=== PATIENT | female | born 1935 | race Caucasian/White ===

== ENCOUNTER 2020-06-11 17:39 | Inpatient (IN) | payer MEDICARE, OTHER ==
[~2020-06-11 17:39] MED LIST: ACID CONTROL150 MG PO; ALLEGRA ALLERG180 MG PO; AMIODARONE HCL200 MG PO; ANORO ELLIPTA1 EACH INH; AZITHROMYCIN250 MG PO; BACLOFEN 20MG T20 MG PO; BENADRYL25 M1 PO; CENTRUM VITAM200 MCG PO; CLARITIN10 MG PO; COMPRESSION TH1 EACH XX; COREG 3.125M3.125 MG PO; COREG 6.25MG6.25 MG PO; COZAAR 100MG T100 MG PO; COZAAR100 MG PO; CRESTOR20 MG PO; DIAZEPAM 5MG TAB5 MG PO; DURAGESIC 75MC75 MCG TD; ELIQUIS5 M1 PO; ELIQUIS5 MG PO; FLOVENT HF120 PUFFS/ INH; FUROSEMIDE 40MG40 MG PO; IMDUR 30MG TABL30 MG PO; KETOROLAC TROME10 MG IM; LASIX40 MG PO; LEVOCETIRIZINE D5 MG PO; MIRALAX17 GM PO; MUCINEX 600MG600 MG PO; NITROQUIK SL0.4 MG SL; NORVASC5 MG PO; OS-CAL 500+D31 EACH PO; PLAVIX75 MG PO; PRINIVIL20 MG PO; PROBIOTIC & AC1 EACH PO; RANITIDINE HCL150 M1 PO; SYNTHROID50 MCG PO; ULTRAM50 MG PO; VENTOLIN HFA IN18 GM INH; VITAMIN B-121000 MC1 PO; VITAMIN D31000 UNIT PO; ZYRTEC10 MG PO
[2020-06-11] MEDS ORDERED: SYNTHROID50 MCG PO (18:00)
[2020-06-11] MEDS ORDERED: LEVOTHYROXINE50 MC1 PO (18:01)
[2020-06-11] MEDS ORDERED: CILOSTAZOL100 MG PO (18:01)
[2020-06-11] MEDS ORDERED: TRAMADOL HCL50 MG PO (18:02)
[2020-06-11] MEDS ORDERED: TYLENOL ARTHRI650 MG PO (18:03)
[2020-06-11] MEDS ORDERED: CRESTOR20 MG PO (18:05)
[2020-06-11] MEDS ORDERED: LASIX40 MG PO (18:05)
[2020-06-11] MEDS ORDERED: ELIQUIS2.5 MG PO (18:06)
[2020-06-11] MEDS ORDERED: COREG 3.125M3.125 MG PO (18:06)
[2020-06-11] MEDS ORDERED: COZAAR100 MG PO (18:09)
[2020-06-11 19:29] LABS: INFLUENZA A NAA NEGATIVE (NEGATIVE)
[2020-06-11 19:30] LABS: CORONAVIRUS 2019 SARS-COV-2 POSITIVE (NEGATIVE)
[2020-06-12 05:35] LABS: HCT 32.5 % (37.0-47.0); HGB 10.2 g/dl (12.5-16.0); MCH 32.1 pg (25.0-31.0); MCHC 31.4 g/dL (32.0-36.0); MCV 102.2 fL (78.0-100.0); MPV 10.1 fL (6.0-9.5); RBC 3.18 M/uL (4.20-5.40); RDW 14.7 % (11.5-14.0); WBC 3.6 K/uL (4.0-10.5)
[2020-06-12 05:54] LABS: BUN/CREAT RATIO (CALC) 25.3 RATIO; CREATININE 0.79 mg/dL (0.51-0.95); POTASSIUM 3.6 mmol/L (3.5-5.1)
--- NOTE | 2020-06-12 12:51 | NUR ---
06/12/20 Ms. Clark lives alone. She has home 02, rw, cane, and s. chair. She reports to be able to prepare her own meals. A lock stitch channeler cleans once a month. A referral was made to [facility] per patient choice. Please notify [facility] at [phone] if patient is discharged over the weekend.
[2020-06-13 05:52] LABS: HCT 33.7 % (37.0-47.0); HGB 10.6 g/dl (12.5-16.0); MCH 32.1 pg (25.0-31.0); MCHC 31.5 g/dL (32.0-36.0); MCV 102.1 fL (78.0-100.0); MPV 10.1 fL (6.0-9.5); RBC 3.3 M/uL (4.20-5.40); RDW 14.4 % (11.5-14.0); WBC 2.5 K/uL (4.0-10.5)
[2020-06-13 06:06] LABS: BUN/CREAT RATIO (CALC) 30.1 RATIO; CREATININE 0.93 mg/dL (0.51-0.95); POTASSIUM 3.7 mmol/L (3.5-5.1)
[2020-06-14 04:57] LABS: HCT 32.9 % (37.0-47.0); HGB 10.6 g/dl (12.5-16.0); MCH 32.3 pg (25.0-31.0); MCHC 32.2 g/dL (32.0-36.0); MCV 100.3 fL (78.0-100.0); MPV 10.2 fL (6.0-9.5); RBC 3.28 M/uL (4.20-5.40)
[2020-06-14 05:01] LABS: WBC 4.4 K/uL (4.0-10.5)
[2020-06-14 05:11] LABS: BUN/CREAT RATIO (CALC) 35.4 RATIO; CREATININE 0.82 mg/dL (0.51-0.95); POTASSIUM 3.4 mmol/L (3.5-5.1)
--- NOTE | 2020-06-14 09:18 | NUR ---
Per Dr. Bridges, patient to be discharged today. Notified [facility] of Discharge.
[2020-06-14] MEDS ORDERED: DECADRON6 MG PO (09:22)
== END 2020-06-14 11:22 | disposition home health service (06) | DRG 177 ==
LOC: FTCU 17:39
PROVIDERS: ADMIT Hospitalist
PROC: 8E0ZXY6 Isolation (ICD-10-PCS; principal; 2020-06-11)
PROC: XW033E5 Introduction of Remdesivir Anti-infective into Peripheral Vein, Percutaneous Approach, New Technology Group 5 (ICD-10-PCS; 2020-06-12)
DX: U07.1 COVID-19 (principal); J96.01 Acute respiratory failure with hypoxia; J12.82 Pneumonia due to coronavirus disease 2019; I50.23 Acute on chronic systolic (congestive) heart failure; I11.0 Hypertensive heart disease with heart failure; E03.9 Hypothyroidism, unspecified; E78.5 Hyperlipidemia, unspecified; G89.4 Chronic pain syndrome; J44.9 Chronic obstructive pulmonary disease, unspecified; M79.7 Fibromyalgia; G47.33 Obstructive sleep apnea (adult) (pediatric); K21.9 Gastro-esophageal reflux disease without esophagitis; E11.51 Type 2 diabetes mellitus with diabetic peripheral angiopathy without gangrene; F41.9 Anxiety disorder, unspecified; M34.9 Systemic sclerosis, unspecified; I73.00 Raynaud's syndrome without gangrene; Z79.01 Long term (current) use of anticoagulants; Z99.81 Dependence on supplemental oxygen; Z90.49 Acquired absence of other specified parts of digestive tract; Z98.51 Tubal ligation status; Z95.5 Presence of coronary angioplasty implant and graft; Z98.890 Other specified postprocedural states; Z88.2 Allergy status to sulfonamides; Z88.5 Allergy status to narcotic agent; Z88.1 Allergy status to other antibiotic agents; Z88.8 Allergy status to other drugs, medicaments and biological substances; Z88.6 Allergy status to analgesic agent
CPT/HCPCS: 36415; 36600; 71045; 71046; 80048; 82803; 83880; 84484; 94640; 97165; C9399; J1100; J1160; J1940; J2405; J7050; U0002

== ENCOUNTER 2021-07-17 20:13 | Emergency (ER) | payer MEDICARE, OTHER ==
[~2021-07-17 20:13] MED LIST changes: +CILOSTAZOL100 MG PO; +DECADRON6 MG PO; +ELIQUIS2.5 MG PO; +LEVOTHYROXINE50 MC1 PO; +TRAMADOL HCL50 MG PO; +TYLENOL ARTHRI650 MG PO
[2021-07-17 22:58] LABS: BASOPHIL 0.5 % (0-2); EOSINOPHIL 2.1 % (0-7); HCT 37.9 % (37.0-47.0); HGB 11.6 g/dl (12.5-16.0); LYMPHOCYTE 20.1 % (15-48); MCH 31.4 pg (25.0-31.0); MCHC 30.6 g/dL (32.0-36.0); MCV 102.4 fL (78.0-100.0); MONOCYTE 9.1 % (0-12); MPV 9.9 fL (6.0-9.5); NEUTROPHIL 67.9 % (41-80); NRBC 0; PLT 117 K/uL (150-400); RDW 16.1 % (11.5-14.0); WBC 6.6 K/uL (4.0-10.5)
[2021-07-17 23:15] LABS: ALBUMIN 3.3 g/dL (3.4-5.0); BILIRUBIN - TOTAL 0.7 mg/dL (0.2-1.0); BUN/CREAT RATIO (CALC) 27.6 RATIO; CREATININE 0.76 mg/dL (0.51-0.95); GLOBULIN (CALCULATION) 3.1 g/dL; POTASSIUM 3.9 mmol/L (3.5-5.1); TOTAL PROTEIN 6.4 g/dL (6.4-8.2)
[2021-07-18 01:00] LABS: BILIRUBIN NEGATIVE (NEGATIVE); BLOOD TRACE-INTACT Ery/uL (NEGATIVE); CLARITY CLEAR (CLEAR); COLOR YELLOW (YELLOW); GLUCOSE (U) NORMAL (NORMAL); LEUKOCYTES 1+ Leu/uL (NEGATIVE); NITRITE NEGATIVE (NEGATIVE); PROTEIN TRACE (LOW) mg/dL (NEGATIVE); UROBILINOGEN 0.2 mg/dL (0.2-1.0)
[2021-07-18 01:10] LABS: BACTERIA 1+; URINARY RBC RARE
[2021-07-18] MEDS ORDERED: MACROBID100 MG PO (02:09)
== END 2021-07-18 02:26 | disposition home or self-care (01) ==
LOC: FER 20:13
PROVIDERS: Emergency Medicine
DX: M25.511 Pain in right shoulder (principal); N39.0 Urinary tract infection, site not specified; J44.9 Chronic obstructive pulmonary disease, unspecified; Z99.81 Dependence on supplemental oxygen; Z88.1 Allergy status to other antibiotic agents; Z88.2 Allergy status to sulfonamides; Z88.5 Allergy status to narcotic agent; Z88.8 Allergy status to other drugs, medicaments and biological substances; W01.0XXA Fall on same level from slipping, tripping and stumbling without subsequent striking against object, initial encounter
CPT/HCPCS: 36415; 70450; 71250; 72125; 73030; 80053; 81001; 85025

== ENCOUNTER 2021-07-18 05:07 | Emergency (ER) | payer MEDICARE, OTHER ==
[~2021-07-18 05:07] MED LIST changes: +MACROBID100 MG PO
== END 2021-07-18 11:40 | disposition home or self-care (01) ==
LOC: FER 05:07
DX: M25.511 Pain in right shoulder (principal); I50.9 Heart failure, unspecified; J44.9 Chronic obstructive pulmonary disease, unspecified; E11.9 Type 2 diabetes mellitus without complications; Z99.81 Dependence on supplemental oxygen; Z88.1 Allergy status to other antibiotic agents; Z88.2 Allergy status to sulfonamides; Z88.5 Allergy status to narcotic agent; X58.XXXA Exposure to other specified factors, initial encounter; Y92.009 Unspecified place in unspecified non-institutional (private) residence as the place of occurrence of the external cause
CPT/HCPCS: 73030

== ENCOUNTER 2021-07-29 23:49 | Emergency (ER) | payer MEDICARE, OTHER | END 2021-07-30 02:55 | disposition home or self-care (01) | LOC: FER 23:49 | DX: M25.511 Pain in right shoulder (principal); I10 Essential (primary) hypertension; J44.9 Chronic obstructive pulmonary disease, unspecified; Z88.1 Allergy status to other antibiotic agents; Z88.2 Allergy status to sulfonamides; Z88.5 Allergy status to narcotic agent; Z88.7 Allergy status to serum and vaccine; W19.XXXA Unspecified fall, initial encounter; Y92.009 Unspecified place in unspecified non-institutional (private) residence as the place of occurrence of the external cause | CPT/HCPCS: 73030 ==

== ENCOUNTER 2021-08-13 14:40 | Emergency (ER) | payer MEDICARE, OTHER ==
[2021-08-13 15:41] LABS: BASOPHIL 0.5 % (0-2); EOSINOPHIL 3.6 % (0-7); HCT 34.2 % (37.0-47.0); HGB 10.1 g/dl (12.5-16.0); MCH 31.7 pg (25.0-31.0); MCHC 29.5 g/dL (32.0-36.0); MCV 107.2 fL (78.0-100.0); MONOCYTE 8.4 % (0-12); MPV 10.1 fL (6.0-9.5); NRBC 0; PLT 158 K/uL (150-400); RBC 3.19 M/uL (4.20-5.40); RDW 18.1 % (11.5-14.0); WBC 6.1 K/uL (4.0-10.5)
[2021-08-13 15:46] LABS: INR 1.29 (0.9-1.2); PROTHROMBIN TIME 15.4 SECONDS (11.8-13.4); PTT 40.4 SECONDS (24.4-34.7)
[2021-08-13 15:57] LABS: ALBUMIN 3.1 g/dL (3.4-5.0); BILIRUBIN - TOTAL 0.8 mg/dL (0.2-1.0); BUN/CREAT RATIO (CALC) 23.5 RATIO; CREATININE 0.81 mg/dL (0.51-0.95); GLOBULIN (CALCULATION) 3.3 g/dL; MAGNESIUM 2.1 mg/dL (1.8-2.4); TOTAL PROTEIN 6.4 g/dL (6.4-8.2)
[2021-08-13 16:41] LABS: LACTIC ACID 1.1 mmol/L (0.4-1.9)
[2021-08-13 16:50] LABS: BILIRUBIN NEGATIVE (NEGATIVE); BLOOD NEGATIVE Ery/uL (NEGATIVE); CLARITY CLEAR (CLEAR); COLOR YELLOW (YELLOW); GLUCOSE (U) NORMAL (NORMAL); LEUKOCYTES NEGATIVE Leu/uL (NEGATIVE); NITRITE NEGATIVE (NEGATIVE); PROTEIN NEGATIVE (NEGATIVE); UROBILINOGEN 0.2 mg/dL (0.2-1.0); pH 6.5 (5.0-9.0)
== END 2021-08-13 18:15 | disposition home or self-care (01) ==
LOC: FER 14:40
PROVIDERS: Emergency Medicine
DX: I11.0 Hypertensive heart disease with heart failure (principal); I50.9 Heart failure, unspecified; I48.91 Unspecified atrial fibrillation; I87.8 Other specified disorders of veins; E11.9 Type 2 diabetes mellitus without complications; F17.200 Nicotine dependence, unspecified, uncomplicated; Z99.81 Dependence on supplemental oxygen; Z79.01 Long term (current) use of anticoagulants; Z79.899 Other long term (current) drug therapy
CPT/HCPCS: 36415; 36600; 71045; 80053; 81003; 82803; 83605; 83735; 83880; 84145; 84484; 85025; 85610; 85730; 87040; 93005; J1940

== ENCOUNTER 2021-08-16 16:13 | Inpatient (IN) | payer MEDICARE, OTHER ==
[~2021-08-16] VITALS: Ht 152.4 cm; Wt 77.2 kg
--- NOTE | 2021-08-16 17:14 | NUR ---
DIRECT ADMIT FROM [facility] VIA STRETCHER. ORIENTED TO ROOM
[2021-08-16 17:52] LABS: EOSINOPHIL 4.4 % (0-7); HCT 31.8 % (37.0-47.0); HGB 9.5 g/dl (12.5-16.0); LYMPHOCYTE 20.5 % (15-48); MCH 31.8 pg (25.0-31.0); MCHC 29.9 g/dL (32.0-36.0); MCV 106.4 fL (78.0-100.0); MONOCYTE 10.6 % (0-12); MPV 9.2 fL (6.0-9.5); NEUTROPHIL 63.1 % (41-80); NRBC 0; PLT 154 K/uL (150-400); RBC 2.99 M/uL (4.20-5.40); RDW 17.6 % (11.5-14.0); WBC 4.8 K/uL (4.0-10.5)
[2021-08-16 18:15] LABS: INR 1.45 (0.9-1.2); PROTHROMBIN TIME 16.9 SECONDS (11.8-13.4)
[2021-08-16 18:16] LABS: PTT 43.9 SECONDS (24.4-34.7)
[2021-08-16] MEDS ORDERED: MACROBID100 MG PO (18:47)
[2021-08-16] MEDS ORDERED: DECADRON6 MG PO (18:48)
[2021-08-16] MEDS ORDERED: COZAAR 100MG T100 MG PO (18:49)
[2021-08-16] MEDS ORDERED: ELIQUIS2.5 MG PO (18:50)
[2021-08-16] MEDS ORDERED: COREG 3.125M3.125 MG PO (18:51)
[2021-08-16] MEDS ORDERED: CRESTOR20 MG PO (18:51)
[2021-08-16] MEDS ORDERED: LASIX40 MG PO (18:54)
[2021-08-16] MEDS ORDERED: 8 HOUR650 MG PO (18:55)
[2021-08-16] MEDS ORDERED: TRAMADOL HCL50 MG PO (18:55)
[2021-08-16 18:56] LABS: IRON % SATURATION 13.4 %SAT (20-50)
[2021-08-16] MEDS ORDERED: CILOSTAZOL100 MG PO (18:57)
[2021-08-16 19:05] LABS: ALBUMIN 2.8 g/dL (3.4-5.0); BILIRUBIN - TOTAL 0.7 mg/dL (0.2-1.0); BUN/CREAT RATIO (CALC) 23.2 RATIO; CREATININE 0.82 mg/dL (0.51-0.95); GLOBULIN (CALCULATION) 3.1 g/dL; POTASSIUM 3.7 mmol/L (3.5-5.1); TOTAL PROTEIN 5.9 g/dL (6.4-8.2)
[2021-08-16] MEDS ORDERED: SYNTHROID50 MCG PO ×2 (19:31→19:32)
[2021-08-16] MEDS ORDERED: DURAGESIC 75MC75 MCG TD (19:34)
[2021-08-16] MEDS ORDERED: ALLOPURINOL100 MG PO (19:36)
[2021-08-16] MEDS ORDERED: NITROSTAT0.4 MG SL (19:37)
[2021-08-17 05:46] LABS: BASOPHIL 0.8 % (0-2); EOSINOPHIL 4.8 % (0-7); HCT 31.6 % (37.0-47.0); HGB 9.3 g/dl (12.5-16.0); LYMPHOCYTE 27.2 % (15-48); MCH 31.3 pg (25.0-31.0); MCHC 29.4 g/dL (32.0-36.0); MCV 106.4 fL (78.0-100.0); MONOCYTE 8.4 % (0-12); MPV 10.1 fL (6.0-9.5); NEUTROPHIL 58.4 % (41-80); PLT 163 K/uL (150-400); RBC 2.97 M/uL (4.20-5.40); RDW 17.5 % (11.5-14.0); WBC 4.8 K/uL (4.0-10.5)
[2021-08-17 06:23] LABS: CREATININE 0.74 mg/dL (0.51-0.95); MAGNESIUM 1.8 mg/dL (1.8-2.4); POTASSIUM 3.1 mmol/L (3.5-5.1)
[2021-08-17 06:26] LABS: BILIRUBIN NEGATIVE (NEGATIVE); BLOOD NEGATIVE Ery/uL (NEGATIVE); CLARITY CLEAR (CLEAR); COLOR YELLOW (YELLOW); GLUCOSE (U) NORMAL (NORMAL); LEUKOCYTES 1+ Leu/uL (NEGATIVE); NITRITE NEGATIVE (NEGATIVE); PROTEIN NEGATIVE (NEGATIVE); UROBILINOGEN 0.2 mg/dL (0.2-1.0)
[2021-08-17 07:50] LABS: EOSINOPHIL(M) 7 % (0-7); LYMPHOCYTE(M) 29 % (15-48); MONOCYTE(M) 7 % (0-12); NEUTROPHILS(M) 57 % (41-80); TOTAL CELL COUNT 100
[2021-08-17 07:51] LABS: NRBC 0; PLATELET ESTIMATE NORMAL; PLATELET MORPHOLOGY NORMAL
--- NOTE | 2021-08-17 14:02 | NUR ---
08/17 Ms. Clark lives alone, She has a rw, 3in1, s. chair, o2 at 4 L (per pt) and portable. She is currently followed by [facility]. [facility] was notified of admission. - Ms. Clark lives in a subsidized rent apartment and receives foodstamps. Her daughter, granddaughter, and grandson assist with laundry, transportation and some meals. Ms. clark reports plans to move into the home f her daughter, Radha Yancey, next month.
[2021-08-18 06:00] LABS: EOSINOPHIL 5.4 % (0-7); HCT 32.6 % (37.0-47.0); HGB 9.8 g/dl (12.5-16.0); LYMPHOCYTE 27.7 % (15-48); MCH 32.6 pg (25.0-31.0); MCHC 30.1 g/dL (32.0-36.0); MCV 108.3 fL (78.0-100.0); MONOCYTE 9.9 % (0-12); MPV 9.9 fL (6.0-9.5); NEUTROPHIL 55.6 % (41-80); NRBC 0; PLT 160 K/uL (150-400); RBC 3.01 M/uL (4.20-5.40); RDW 17.6 % (11.5-14.0); WBC 4.8 K/uL (4.0-10.5)
[2021-08-18 06:31] LABS: BUN/CREAT RATIO (CALC) 23.3 RATIO; CREATININE 0.9 mg/dL (0.51-0.95); MAGNESIUM 1.8 mg/dL (1.8-2.4); POTASSIUM 3.9 mmol/L (3.5-5.1)
[2021-08-19 05:51] LABS: BASOPHIL 0.6 % (0-2); EOSINOPHIL 4.4 % (0-7); HCT 32.8 % (37.0-47.0); HGB 9.7 g/dl (12.5-16.0); LYMPHOCYTE 17.9 % (15-48); MCH 31.9 pg (25.0-31.0); MCHC 29.6 g/dL (32.0-36.0); MCV 107.9 fL (78.0-100.0); MONOCYTE 8.1 % (0-12); NEUTROPHIL 68.6 % (41-80); NRBC 0; PLT 174 K/uL (150-400); RBC 3.04 M/uL (4.20-5.40); RDW 17.2 % (11.5-14.0); WBC 4.8 K/uL (4.0-10.5)
[2021-08-19 06:07] LABS: BUN/CREAT RATIO (CALC) 21.1 RATIO; CREATININE 1.09 mg/dL (0.51-0.95)
--- NOTE | 2021-08-19 16:51 | NUR ---
08/19/21 [facility] has been notified of planned discharge for 08/21.
[2021-08-20 08:16] LABS: BASOPHIL 0.8 % (0-2); EOSINOPHIL 5.8 % (0-7); HCT 34.3 % (37.0-47.0); LYMPHOCYTE 20.5 % (15-48); MCH 32.1 pg (25.0-31.0); MCHC 29.2 g/dL (32.0-36.0); MCV 109.9 fL (78.0-100.0); MONOCYTE 8.6 % (0-12); MPV 9.8 fL (6.0-9.5); NEUTROPHIL 64.1 % (41-80); NRBC 0; PLT 170 K/uL (150-400); RBC 3.12 M/uL (4.20-5.40); RDW 17.5 % (11.5-14.0); WBC 5.1 K/uL (4.0-10.5)
[2021-08-20 08:29] LABS: BUN/CREAT RATIO (CALC) 21.1 RATIO; CREATININE 1.23 mg/dL (0.51-0.95); POTASSIUM 3.5 mmol/L (3.5-5.1)
--- NOTE | 2021-08-20 16:21 | NUR ---
08/20 Please call A at [phone] if patient discharges on Monday.
[2021-08-21 05:40] LABS: BASOPHIL 0.4 % (0-2); HCT 34.4 % (37.0-47.0); HGB 10.1 g/dl (12.5-16.0); LYMPHOCYTE 19.3 % (15-48); MCH 31.7 pg (25.0-31.0); MCHC 29.4 g/dL (32.0-36.0); MCV 107.8 fL (78.0-100.0); MONOCYTE 7.5 % (0-12); MPV 9.8 fL (6.0-9.5); NEUTROPHIL 66.6 % (41-80); NRBC 0; PLT 159 K/uL (150-400); RBC 3.19 M/uL (4.20-5.40); RDW 17.1 % (11.5-14.0); WBC 4.8 K/uL (4.0-10.5)
[2021-08-21 06:09] LABS: BUN/CREAT RATIO (CALC) 25.8 RATIO; CREATININE 0.93 mg/dL (0.51-0.95); MAGNESIUM 2.1 mg/dL (1.8-2.4); POTASSIUM 3.3 mmol/L (3.5-5.1)
[2021-08-22 03:53] LABS: BUN/CREAT RATIO (CALC) 29.4 RATIO; CREATININE 0.85 mg/dL (0.51-0.95); POTASSIUM 3.3 mmol/L (3.5-5.1)
[2021-08-22] MEDS ORDERED: BUMETANIDE2 MG PO (10:44)
[2021-08-22] MEDS ORDERED: POTASSIUM CHLO20 ME1 PO (10:44)
[2021-08-22] MEDS ORDERED: DIGITEK125 MCG PO (10:44)
== END 2021-08-22 15:30 | disposition home health service (06) | DRG 291 ==
LOC: FTCU 16:13
PROVIDERS: Internal Medicine; Internal Medicine Cardiovascular Disease; Nurse Practitioner Acute Care; Nurse Practitioner Family; ADMIT Internal Medicine
PROC: B24BZZZ Ultrasonography of Heart with Aorta (ICD-10-PCS; principal; 2021-08-16)
PROC: 5A09357 Assistance with Respiratory Ventilation, Less than 24 Consecutive Hours, Continuous Positive Airway Pressure (ICD-10-PCS; 2021-08-20)
DX: I11.0 Hypertensive heart disease with heart failure (principal); I50.33 Acute on chronic diastolic (congestive) heart failure; J96.02 Acute respiratory failure with hypercapnia; I31.3 Pericardial effusion (noninflammatory); I48.20 Chronic atrial fibrillation, unspecified; J96.11 Chronic respiratory failure with hypoxia; Z66 Do not resuscitate; I27.20 Pulmonary hypertension, unspecified; E78.5 Hyperlipidemia, unspecified; J44.9 Chronic obstructive pulmonary disease, unspecified; G47.33 Obstructive sleep apnea (adult) (pediatric); E03.9 Hypothyroidism, unspecified; K21.9 Gastro-esophageal reflux disease without esophagitis; E11.9 Type 2 diabetes mellitus without complications; D53.9 Nutritional anemia, unspecified; E88.09 Other disorders of plasma-protein metabolism, not elsewhere classified; F41.9 Anxiety disorder, unspecified; M32.9 Systemic lupus erythematosus, unspecified; G89.29 Other chronic pain; D50.9 Iron deficiency anemia, unspecified; I73.00 Raynaud's syndrome without gangrene; Z99.81 Dependence on supplemental oxygen; Z90.49 Acquired absence of other specified parts of digestive tract; Z98.890 Other specified postprocedural states; Z87.891 Personal history of nicotine dependence; Z82.49 Family history of ischemic heart disease and other diseases of the circulatory system; Z79.899 Other long term (current) drug therapy; Z98.51 Tubal ligation status; Z95.5 Presence of coronary angioplasty implant and graft; Z98.41 Cataract extraction status, right eye; Z98.42 Cataract extraction status, left eye; Z79.01 Long term (current) use of anticoagulants
CPT/HCPCS: 36415; 36600; 71045; 80048; 80053; 81001; 81003; 82607; 82803; 82962; 83036; 83540; 83550; 83605; 83735; 83880; 84145; 84484; 85025; 85610; 85730; 87040; 93005; 94660; 97110; 97116; 97162; 97166; 97535; J1160; J1940; J2916